=== PATIENT | female | born 1995 | race Caucasian/White ===

== ENCOUNTER → 2019-02-07 | Outpatient (CLI) | payer OTHER | LOC: LAB 11:51 → LAB SHORT 11:51 | PROVIDERS: Registered Nurse Community Health | DX: Z12.4 Encounter for screening for malignant neoplasm of cervix (principal) | CPT/HCPCS: G0123 ==

== ENCOUNTER → 2022-10-15 | Outpatient (CLI) | payer BC, OTHER | LOC: LAB SHORT 11:41 | PROVIDERS: Registered Nurse Community Health | DX: Z12.4 Encounter for screening for malignant neoplasm of cervix (principal) | CPT/HCPCS: G0145 ==

== ENCOUNTER → 2024-02-11 | Outpatient (CLI) | payer SELFPAY ==
[2024-02-14 20:20] LABS: APTIMA MEDIA TYPE MultiTest Swab; C. TRACHOMATIS BY TMA Negative (Negative); N. GONORRHOEAE BY TMA Negative (Negative); SPECIMEN SOURCE Vaginal; T. VAGINALIS BY TMA Negative (Negative)
== END | disposition home or self-care (01) ==
LOC: LAB 10:16 → LAB SHORT 10:16
PROVIDERS: Registered Nurse Community Health
DX: Z11.3 Encounter for screening for infections with a predominantly sexual mode of transmission (principal)
CPT/HCPCS: 87491; 87591; 87661